=== PATIENT | male | born 1980 | race Caucasian/White ===

== ENCOUNTER 2022-03-23 14:54 | Inpatient (IN) | payer OTHER ==
[2022-03-23 17:20] VITALS: BMI 22.6
[2022-03-23] MEDS ORDERED: methaDONE HCL 10 MG TABLET (FOR DETOX USE ONLY) PO ONE ×2 (19:11→23:45)
[2022-03-23] MEDS ORDERED: ONDANSETRON *ODT* 4 MG TABLET SL PRN (19:11)
[2022-03-23] MEDS ORDERED: BENZOCAINE/MENTHOL (CHLORASEPTIC ) LOZENGE MM PRN (19:11)
[2022-03-23] MEDS ORDERED: IBUPROFEN 400 MG TABLET (FP) PO PRN (19:11)
[2022-03-23] MEDS ORDERED: ACETAMINOPHEN 325 MG TABLET (FP) PO PRN ×2 (19:11)
[2022-03-23] MEDS ORDERED: BISMUTH SUBSALICYLATE 524 MG/30 ML PO PRN (19:11)
[2022-03-23] MEDS ORDERED: LOPERAMIDE HCL 2 MG CAPSULE PO PRN (19:11)
[2022-03-23] MEDS ORDERED: DICYCLOMINE HCL 10 MG CAPSULE PO PRN (19:11)
[2022-03-23] MEDS ORDERED: MAGNESIUM CITRATE 300 ML BOTTLE PO PRN (19:11)
[2022-03-23] MEDS ORDERED: MAGNESIUM HYDROX 2400MG/30ML ORAL SUSPENSION 30 ML CUP PO PRN (19:11)
[2022-03-23] MEDS ORDERED: MAG HYDROX/AL HYDROX/SIMETH 30 ML UNIT-DOSE CUP PO PRN (19:11)
[2022-03-24] MEDS: THIAMINE HCL 100 MG TABLET (FP) PO SCH ×2 (00:03→22:19)
[2022-03-24] MEDS: hydrOXYzine PAMOATE 25 MG CAPSULE (FP) PO SCH ×6 (00:03→22:19)
[2022-03-24] MEDS: MELATONIN 5 MG TABLETS PO SCH ×2 (00:03→22:19)
[2022-03-24] MEDS: METHOCARBAMOL 500 MG TABLET PO PRN ×4 (00:04→22:21)
[2022-03-24] MEDS ORDERED: hydrOXYzine PAMOATE 25 MG CAPSULE (FP) PO ONE (03:40)
[2022-03-24] MEDS: metFORMIN HCL 500 MG TABLET (FP) PO SCH ×2 (06:01→17:49)
[2022-03-24] MEDS ORDERED: methaDONE HCL 10 MG TABLET (FOR DETOX USE ONLY) ONE (09:38)
[2022-03-24] MEDS: PRENATAL VITAMINS W/ FOLIC ACID TABLET (FP) PO SCH (10:08)
[2022-03-24 11:39] LABS: HEMATOCRIT 43.3 % (35.4-49); HEMOGLOBIN 14.4 GM/dL (11.7-16.9); MCH 29.6 pg (25.7-33.7); MCHC 33.3 g/dl (32.0-35.9); MEAN CELL VOLUME 88.9 fl (80-96); MEAN PLT VOLUME 8.9 fl (7.5-11.1); PLATELET COUNT 250 10^3/uL (134-434); RBC 4.87 M/mm3 (4.00-5.60); RDW 14.9 % (11.9-15.9); WHITE BLOOD COUNT 11.1 K/mm3 (4.0-10.0)
[2022-03-24 12:20] LABS: ALBUMIN 4.1 g/dl (3.4-5.0); CALCIUM 9.2 mg/dL (8.5-10.1)
[2022-03-24 12:23] LABS: CREATININE 1.2 mg/dL (0.55-1.3)
[2022-03-24 12:25] LABS: TOT PROT 7.8 g/dl (6.4-8.2)
[2022-03-24 12:26] LABS: BILIRUBIN,TOTAL 1.4 mg/dL (0.2-1)
[2022-03-24] MEDS ORDERED: cloNIDine HCL 0.1 MG TABLET PO ONE (15:17)
[2022-03-24] MEDS: NICOTINE 10 MG CARTRIDGE (INHALER) IH PRN ×2 (16:46→20:09)
[2022-03-24] MEDS: cloNIDine HCL 0.1 MG TABLET PO SCH (22:19)
[2022-03-25] MEDS: METHOCARBAMOL 500 MG TABLET PO PRN (05:39)
[2022-03-25] MEDS: hydrOXYzine PAMOATE 25 MG CAPSULE (FP) PO SCH ×5 (05:40→22:43)
[2022-03-25] MEDS: metFORMIN HCL 500 MG TABLET (FP) PO SCH ×2 (06:18→17:34)
[2022-03-25 09:50] LABS: BASO % 0.8 % (0-2.0); EOS % 1.7 % (0-4.5); HEMATOCRIT 40.6 % (35.4-49); HEMOGLOBIN 13.6 GM/dL (11.7-16.9); LYMPH % 37.7 % (8-40); MCH 29.5 pg (25.7-33.7); MCHC 33.6 g/dl (32.0-35.9); MEAN CELL VOLUME 87.8 fl (80-96); MEAN PLT VOLUME 8.7 fl (7.5-11.1); MONO % 7.6 % (3.8-10.2); NEUT % 52.2 % (42.8-82.8); PLATELET COUNT 234 10^3/uL (134-434); RBC 4.62 M/mm3 (4.00-5.60); RDW 14.7 % (11.9-15.9); WHITE BLOOD COUNT 9.6 K/mm3 (4.0-10.0)
[2022-03-25] MEDS ORDERED: methaDONE HCL 10 MG TABLET (FOR DETOX USE ONLY) PO ONE (10:00)
[2022-03-25] MEDS: PRENATAL VITAMINS W/ FOLIC ACID TABLET (FP) PO SCH (10:09)
[2022-03-25] MEDS: cloNIDine HCL 0.1 MG TABLET PO SCH ×2 (10:09→22:43)
[2022-03-25] MEDS: NICOTINE 10 MG CARTRIDGE (INHALER) IH PRN (11:27)
[2022-03-25 16:08] LABS: SARS-CoV-2 NAA Not Detected (Not Detected)
[2022-03-25] MEDS: diazePAM 5 MG TABLET PO PRN (17:34)
[2022-03-25] MEDS ORDERED: COLLOIDAL OATMEAL 1 BAR EACH TP PRN (17:52)
[2022-03-25] MEDS: MELATONIN 5 MG TABLETS PO SCH (22:43)
[2022-03-25] MEDS: GABAPENTIN 400 MG CAPSULE PO SCH (22:43)
[2022-03-25] MEDS: THIAMINE HCL 100 MG TABLET (FP) PO SCH (22:43)
[2022-03-26] MEDS: diazePAM 5 MG TABLET PO PRN ×5 (00:45→22:16)
[2022-03-26] MEDS: hydrOXYzine PAMOATE 25 MG CAPSULE (FP) PO SCH ×5 (05:39→22:16)
[2022-03-26] MEDS: GABAPENTIN 400 MG CAPSULE PO SCH ×3 (05:39→22:17)
[2022-03-26] MEDS: metFORMIN HCL 500 MG TABLET (FP) PO SCH ×2 (06:56→17:34)
[2022-03-26] MEDS ORDERED: methaDONE HCL 10 MG TABLET (FOR DETOX USE ONLY) ONE (09:22)
[2022-03-26] MEDS: cloNIDine HCL 0.1 MG TABLET PO SCH ×2 (10:04→22:17)
[2022-03-26] MEDS: METHOCARBAMOL 500 MG TABLET PO PRN (10:04)
[2022-03-26] MEDS: PRENATAL VITAMINS W/ FOLIC ACID TABLET (FP) PO SCH (10:04)
[2022-03-26] MEDS: THIAMINE HCL 100 MG TABLET (FP) PO SCH (22:16)
[2022-03-26] MEDS: MELATONIN 5 MG TABLETS PO SCH (22:17)
[2022-03-27] MEDS: diazePAM 5 MG TABLET PO PRN (05:45)
[2022-03-27] MEDS: hydrOXYzine PAMOATE 25 MG CAPSULE (FP) PO SCH ×2 (05:45→09:30)
[2022-03-27] MEDS: GABAPENTIN 400 MG CAPSULE PO SCH (05:45)
[2022-03-27 09:01] VITALS: BP 135/71; PULSE 81; TEMP 97.8
[2022-03-27] MEDS ORDERED: methaDONE HCL 10 MG TABLET (FOR DETOX USE ONLY) PO ONE ×2 (09:01→10:00)
[2022-03-27] MEDS: metFORMIN HCL 500 MG TABLET (FP) PO SCH (09:04)
[2022-03-27] MEDS: cloNIDine HCL 0.1 MG TABLET PO SCH (09:31)
[2022-03-27] MEDS: NICOTINE 10 MG CARTRIDGE (INHALER) IH PRN (09:34)
[2022-03-27] MEDS: PRENATAL VITAMINS W/ FOLIC ACID TABLET (FP) PO SCH (09:34)
== END 2022-03-27 10:17 | disposition home or self-care (01) | DRG 773 ==
LOC: YASAS 14:54 → Y3N 21:20
PROVIDERS: ADMIT Allergy & Immunology; ATTEND Surgery
PROC: HZ2ZZZZ Detoxification Services for Substance Abuse Treatment (ICD-10-PCS; principal; 2022-03-23)
DX: F11.23 Opioid dependence with withdrawal (principal); F14.20 Cocaine dependence, uncomplicated; F12.20 Cannabis dependence, uncomplicated; F17.210 Nicotine dependence, cigarettes, uncomplicated; F19.24 Other psychoactive substance dependence with psychoactive substance-induced mood disorder; F31.9 Bipolar disorder, unspecified; F43.10 Post-traumatic stress disorder, unspecified; I10 Essential (primary) hypertension; E11.9 Type 2 diabetes mellitus without complications; Z79.84 Long term (current) use of oral hypoglycemic drugs; Z56.0 Unemployment, unspecified; Z59.00 Homelessness unspecified
CPT/HCPCS: 36415; 80053; 82962; 85025; 85027; 86780; 93005; 93010; C9803-CS; J0735; U0003; U0005